=== PATIENT | female | born 1955 | race Caucasian/White ===

== ENCOUNTER 2023-11-29 10:10 | Emergency (ER) | payer SELFPAY ==
[2023-11-29 10:24] VITALS: BP 120/80
[2023-11-29 10:43] VITALS: BP 130/72
[2023-11-29 10:47] VITALS: BMI 28.0
[2023-11-29 11:00] VITALS: BP 116/71
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
[2023-11-29] MEDS: TYLENOL 1000 MG PO (11:41)
[2023-11-29] MEDS: MOTRIN 400 MG PO (13:24)
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
[2023-11-29 15:25] VITALS: BP 132/82
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
== END 2023-11-29 15:27 | disposition home or self-care (01) ==
LOC: EMR 10:10
PROVIDERS: EMERGENCY PHYSICIAN Emergency Medicine
DX: S52.501A Unspecified fracture of the lower end of right radius, initial encounter for closed fracture (principal); S82.001A Unspecified fracture of right patella, initial encounter for closed fracture; S32.038A Other fracture of third lumbar vertebra, initial encounter for closed fracture; V89.2XXA Person injured in unspecified motor-vehicle accident, traffic, initial encounter; M79.7 Fibromyalgia
CPT/HCPCS: 99283; 29125; 72100; 72220; 73110; 73560; 73590

== ENCOUNTER → 2024-01-22 12:23 | Outpatient (REF) | payer OTHER, SELFPAY | LOC: PAVMRI 12:23 | PROVIDERS: ATTENDING PHYSICIAN Anesthesiology Pain Medicine | DX: M48.50XA Collapsed vertebra, not elsewhere classified, site unspecified, initial encounter for fracture (principal); M54.50 Low back pain, unspecified | CPT/HCPCS: 72158; A9575 ==

== ENCOUNTER → 2024-02-23 09:09 | Outpatient (REF) | payer OTHER, SELFPAY | LOC: HWRAD 09:09 | PROVIDERS: ATTENDING PHYSICIAN Anesthesiology Pain Medicine; FAMILY PHYSICIAN Family Medicine | DX: M48.50XA Collapsed vertebra, not elsewhere classified, site unspecified, initial encounter for fracture (principal); M54.50 Low back pain, unspecified; M81.0 Age-related osteoporosis without current pathological fracture | CPT/HCPCS: 77080 ==